=== PATIENT | female | born 1975 | race Caucasian/White ===

== ENCOUNTER 2020-10-02 16:33 | Emergency (ER) | payer SELFPAY ==
[~2020-10-02] VITALS: Ht 172.7 cm; Wt 95.4 kg
[2020-10-02] MEDS ORDERED: ONDANSETRON 2MG/ML, 2ML IVPush ONE (17:30)
[2020-10-02] MEDS ORDERED: SODIUM CHLORIDE FLUSH 10ML SYR IVF ONE (17:30)
[2020-10-02] MEDS ORDERED: ONDANSETRON 2MG/ML, 2ML ONE (17:36)
[2020-10-02] MEDS ORDERED: HYDROmorphone 1 MG/ML, 1ML INJ ONE ×2 (17:36→19:14)
[2020-10-02 17:39] LABS: MICROSCOPIC NOT IND
[2020-10-02] MEDS: HYDROmorphone 2 MG/ML, 1ML IVPush PRN ×2 (18:03→19:16)
--- NOTE | 2020-10-02 18:06 | NUR ---
PT MEDICATED ORDERED. PT C/O LEFT FLANK KAILA RADIATING TO LLQ OF ABDOMEN FOR 2 DAYS THAT STARTED SUDDENLY AFTER GETTING OUT OF CHAIR. PT DENIES HEARING A POP. PT REPORTS VOIDING LESS BUT DENIES FEVERS OR CHILLS. REPORT TO DEMARIO DALY.
[2020-10-02 18:10] LABS: BASOPHILS % (AUTO) 0 % (0-1); EOSINOPHILS % (AUTO) 1 % (1-7); LYMPHOCYTES % (AUTO) 19 % (22-44); MEAN CORPUSCULAR HEMOGLOBIN 30.1 pg (27.0-34.8); MEAN CORPUSCULAR HGB CONC 34.2 g/dL (32.4-35.8); MEAN PLATELET VOLUME 7.2 fL (7.4-10.4); MONOCYTES % (AUTO) 4 % (2-9); NEUTROPHILS % (AUTO) 75 % (42-75); PLATELET COUNT 298 x10^3/uL (130-400); RED BLOOD COUNT 4.65 x10^6/uL (3.82-5.3); RED CELL DISTRIBUTION WIDTH 13.5 % (9.6-15.2)
[2020-10-02 18:11] LABS: MD NO
[2020-10-02 18:19] LABS: ALBUMIN 3.9 g/dL (3.4-5.0); ANION GAP 5 mmol/L (5-15); CALCIUM 8.5 mg/dL (8.5-10.1); CHLORIDE 106 mmol/L (98-107)
[2020-10-02 18:25] LABS: ALANINE AMINOTRANSFERASE 21 U/L (12-78); ALKALINE PHOSPHATASE 53 U/L (45-117); BILIRUBIN,TOTAL 0.5 mg/dL (0.2-1.0); CREATININE 0.75 mg/dL (0.55-1.02); TOTAL PROTEIN 7.8 g/dL (6.4-8.2)
--- NOTE | 2020-10-02 19:19 | NUR ---
pt co of pain. pt medicated per mar
[2020-10-02 21:14] VITALS: BP 112/70
== END 2020-10-02 21:25 | disposition home or self-care (01) ==
LOC: ED 17:13
DX: M54.5 Low back pain (principal); R10.9 Unspecified abdominal pain
CPT/HCPCS: 36415; 74176; 80053; 81003; 83690; 84703; 85025; 96374; 96375; 96376; 99284; J1170; J2405